=== PATIENT | female | born 1940 | race African-American/Black ===

== ENCOUNTER 2019-09-15 14:39 | Emergency (ER) | payer OTHER ==
[~2019-09-15] VITALS: Ht 160 cm; Wt 60.0 kg
[2019-09-15 15:00] VITALS: BP 143/93
[2019-09-15] MEDS ORDERED: ACETAMINOPHEN 500MG TABLET PO ONE (17:00)
== END 2019-09-15 19:04 | disposition home or self-care (01) ==
LOC: ER 14:39
DX: S43.401A Unspecified sprain of right shoulder joint, initial encounter (principal); S40.011A Contusion of right shoulder, initial encounter; J45.909 Unspecified asthma, uncomplicated; W01.0XXA Fall on same level from slipping, tripping and stumbling without subsequent striking against object, initial encounter; Y93.89 Activity, other specified; Y92.512 Supermarket, store or market as the place of occurrence of the external cause
CPT/HCPCS: 73030; 99283